=== PATIENT | male | born 1955 | race American Indian/Alaskan Native ===

== ENCOUNTER 2020-12-26 12:02 | Emergency (ER) | payer OTHER ==
[2020-12-26 12:42] VITALS: BP 200/103
--- NOTE | 2020-12-26 13:41 | Event Note ---
ED Screening Note Date of service: 12/26/20 Time: 13:39 ED Screening Note: Patient presents to the ER today with complaints of headache and he also possibly had a syncopal episode on 21 December. Patient states that on December 21 he remembers that he was having a couple drinks, he was seen on the chair and then when he woke up he was on the floor. He states that he is not exactly sure what happened or how he ended up on the floor. This was unwitnessed. He states that he was feeling fine before and also feeling fine when he woke up off the floor. He states that he started having headache 2 days ago after working out and its in the right forehead right temporal area. He states he drinks occasionally. He denies any significant past medical history. He did not get checked out at the time that he may have passed out. This initial assessment/diagnostic orders/clinical plan/treatment(s) is/are subject to change based on patients health status, clinical progression and re- assessment by fellow clinical providers in the ED. Further treatment and workup at subsequent clinical providers discretion. Patient/guardian urged not to elope from the ED as their condition may be serious if not clinically assessed and managed. Initial orders include: Labs/head CT/EKG/chest x-ray
--- NOTE | 2020-12-26 14:12 | XRay Report ---
CHEST 2 VIEWS INDICATION / CLINICAL INFORMATION: syncope. COMPARISON: None available. FINDINGS: SUPPORT DEVICES: None. HEART / MEDIASTINUM: No significant abnormality. LUNGS / PLEURA: No significant pulmonary or pleural abnormality. No pneumothorax. ADDITIONAL FINDINGS: No significant additional findings. IMPRESSION: 1. No acute findings. Signer Name: Gerald Holbrook MD Signed: 12/26/2020 2:08 PM Workstation Name: [id number]
[2020-12-26 14:17] LABS: Basophils % (Auto) 0.5 % (0.0-1.8); Eosinophils % (Auto) 0.2 % (0.0-4.3); Hematocrit 39.9 % (35.5-45.6); Hemoglobin 14.1 gm/dl (11.8-15.2); Lymphocytes # (Auto) 1.3 K/mm3 (1.2-5.4); Mean Corpuscular HGB Conc 35 % (32-34); Mean Corpuscular Volume 96 fl (84-94); Monocytes # (Auto) 0.7 K/mm3 (0.0-0.8); Monocytes % (Auto) 9.1 % (0.0-7.3); Platelet Count 317 K/mm3 (140-440); Red Blood Count 4.18 M/mm3 (3.65-5.03); Red Cell Distribution Width 13.7 % (13.2-15.2)
[2020-12-26 14:42] LABS: Alanine Aminotransferase 11 units/L (7-56); Albumin 4.3 g/dL (3.9-5); BUN/Creatinine Ratio 10; Blood Urea Nitrogen 9 mg/dL (9-20); Hemolysis Index 2
--- NOTE | 2020-12-26 15:08 | Cat Scan Report ---
CT BRAIN: 12/26/2020 INDICATION / CLINICAL INFORMATION: LYNCH/syncope possible head injury. COMPARISON: None available. FINDINGS: BRAIN/INTRACRANIAL STRUCTURES: Unenhanced CT images of the brain demonstrate no evidence of acute int racranial abnormality. Ventricles and sulci are normal in size and shape. There is no evidence of acute large vessel territory ischemic injury, hemorrhage, or mass. There are no abnormal extra-axial fluid collections. EXTRACRANIAL STRUCTURES: Unremarkable. IMPRESSION: No acute abnormality. All CT scans at this location are performed using dose reduction to ALARA by means of automated expos ure control. Signer Name: Jamarcus Sterling MD Signed: 12/26/2020 3:03 PM Workstation Name: [id number]
[2020-12-26 15:13] LABS: Bilirubin,Urine NEG (Negative); Blood,Urine NEG (Negative); Color,Urine Yellow (Yellow); Mucus,Urine FEW /HPF; Urobilinogen,Urine < 2.0 mg/dL (<2.0)
--- NOTE | 2020-12-28 19:10 | Electrocardiograph Report ---
[facility] Test Date: 2020-12-26 Test Time: 12:47:24 Pat Name: JACQUELINE NEWTON Department: Room: Gender: M Woodworking Machine Operator: BASIA : 1955 Requested By: ELENITA GARCIA Order Number: [id number] Reading MD: Norberto Hobson Measurements Intervals [place] Rate: 53 P: 5 W[place]: 69 QRS: 69 QRSD: 101 T: 60 QT: 453 QTc: 427 Interpretive Statements Bradycardia with irregular rate Early repolarization ST changes No previous ECG available for comparison Electronically Signed On 12-28-2020 19:10:08 EDT by Norberto Hobson
== END 2020-12-26 17:55 ==
LOC: ED 12:02
DX: R55 Syncope and collapse (principal); Z53.21 Procedure and treatment not carried out due to patient leaving prior to being seen by health care provider
CPT/HCPCS: 36415; 70450; 71046; 80053; 81001; 83735; 84484; 85025; 93005